=== PATIENT | male | born 1975 | race Caucasian/White ===

== ENCOUNTER 2016-12-18 14:08 | Emergency (ER) | payer BC ==
[2016-12-18 14:23] VITALS: BP 140/93
--- NOTE | 2016-12-18 14:55 | UC ---
Cardiac HPI - HPI Summary HPI Summary: PT PRESENTS WITH 1 AND A HALF WEEKS OF INTERMITTENT MID STERNAL CHEST PAIN. FEELS "TIGHT" WITH OCCASIONAL "PRESSURE". DENIES SOB, NAUSEA, SWEATS. PAIN SOMETIME FEELS LIKE IT IS IN HIS BACK. NOT WORSE WITH EXERTION ALTHOUGH HE FEELS IT AFTER HE WORKS OUT OR DOES STRENUOUS ACTIVITY LIKE SNOW SHOVELING. STARTED A WORKOUT ROUTINE ABOUT 3 WEEKS AGO. 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 HAS NOT TAKEN ANY ANALGESICS. - History of Current Complaint Chief Complaint: UCChestPain Stated Complaint: CHEST PAIN/PRESSURE Time Seen by Provider: 12/18/16 14:41 Hx Obtained From: Patient Pain Intensity: 2 - Allergy/Home Medications Allergies/Adverse Reactions: Allergies Allergy/AdvReac Type Severity Reaction Status Date / Time ANESTHESIA Allergy Severe Vomiting Uncoded 12/18/16 14:23 Home Medications: Home Medications Albuterol HFA INHALER* [Ventolin HFA Inhaler*] PRN 12/18/16 [History] PMH/Surg Hx/FS Hx/Imm Hx - Additional Past Medical History Additional PMH: SEASONAL ALLERGIES Respiratory History Of: Reports: Asthma - Surgical History Surgical History: Yes Surgery Procedure, Year, and Place: TONISILLECTOMY, TYMPANOPLASTY, WISDOM TEETH - Family History Known Family History: Positive: Cardiac Disease, Other - ASTHMA - Social History Alcohol Use: Rare Substance Use Type: Marijuana Smoking Status (MU): Never Smoked Tobacco Review of Systems Constitutional: Negative Respiratory: Negative Cardiovascular: Chest Pain Genitourinary: Negative All Other Systems Reviewed And Are Negative: Yes Physical Exam Triage Information Reviewed: Yes Appearance: Well-Appearing, No Pain Distress, Well-Nourished Vital Signs: Initial Vital Signs Temp 99.1 F 12/18/16 14:16 Pulse 80 12/18/16 14:16 Resp 16 12/18/16 14:16 BP 140/93 12/18/16 14:16 Pulse Ox 99 12/18/16 14:16 Vital Signs Reviewed: Yes Eyes: Positive: Conjunctiva Clear ENT: Positive: Hearing grossly normal, Pharynx normal, TMs normal Neck: Positive: Supple, Nontender, No Lymphadenopathy Respiratory Exam: Normal Cardiovascular Exam: Normal Abdomen Description: Positive: Soft Musculoskeletal: Positive: No Edema Neurological: Positive: Alert Psychological: Positive: Age Appropriate Behavior Skin: Negative: rashes Diagnostics - EKG Cardiac Rate: NL - 76 BPM Cardiac Rhythm: Sinus: Normal Ectopy: None ST Segment: Normal - Differential Diagnoses - Chest Pain Differential Diagnosis/HQI/PQRI: Acute OR, ACS, Chest Wall, Lower Respiratory Infection, Pulmonary Embolism - Clinical Impression Provider Diagnoses: CHEST WALL PAIN Discharge - Discharge Plan Condition: Stable Disposition: HOME Patient Education Materials: Chest Wall Pain (ED) Referrals: Charmaine Roche MD [Primary Care Provider] - If Needed Additional Instructions: YOUR SYMPTOMS ARE NOT CLEARLY SUGGESTIVE OF ANY SPECIFIC RESPIRATORY OR CARDIAC CAUSE. MAY BE DUE TO RECENT INITIATION OF WORKOUT ROUTINE AND HEAVY SNOW SHOVELING. TAKE OTC NSAIDS AND REST. IF SYMPTOMS ARE PERSISTENT OR WORSEN GO TO THE ER WITHOUT FAIL FOR FURTHER EVALUATION.
== END 2016-12-18 15:20 | disposition home or self-care (01) ==
LOC: UCEAST 14:08
DX: R07.89 Other chest pain (principal); J45.909 Unspecified asthma, uncomplicated; R03.0 Elevated blood-pressure reading, without diagnosis of hypertension; Z88.4 Allergy status to anesthetic agent; F12.90 Cannabis use, unspecified, uncomplicated
CPT/HCPCS: 93005; 99211; G0463

== ENCOUNTER 2017-06-20 17:35 | Emergency (ER) | payer BC ==
[2017-06-20] MEDS ORDERED: NS 0.9% 1000 ML* 1,000 ML IV ONE (19:21)
[2017-06-20] MEDS ORDERED: Morphine INJ* 4 MG/ML 1 ML CARPUJECT IV ONE (19:21)
[2017-06-20] MEDS ORDERED: Tetan/Diph/Pertus SYR(Tdap)* 0.5 ML SYR(BOOSTRIX) use SYR IM ONE (19:55)
--- NOTE | 2017-06-20 19:57 | RAD ---
INDICATION: Left shoulder pain COMPARISON: None TECHNIQUE: Routine frontal, Y and axial views were obtained. FINDINGS: There are no acute bony findings. There is cephalad displacement of distal clavicle at the AC joint consistent with AC joint separation. The glenohumeral joint is intact. There is soft tissue swelling with a laceration adjacent to the AC joint. IMPRESSION: SUSPECTED AC JOINT SEPARATION.
[2017-06-20 20:10] LABS: Hematocrit 48 % (42-52); Hemoglobin 16.5 g/dl (14.0-18.0); Mean Corpuscular HGB Conc 35 g/dl (31-36); Mean Corpuscular Hemoglobin 31 pg (27-31); Mean Corpuscular Volume 88 fL (80-94); Mean Platelet Volume 8 um3 (7.4-10.4); Red Blood Count 5.41 10^6/ul (4.0-5.4); Red Cell Distribution Width 13 % (10.5-15); White Blood Count 19.2 10^3/ul (3.5-10.8)
[2017-06-20] MEDS ORDERED: Ibuprofen TAB* 400 MG PO ONE (20:11)
--- NOTE | 2017-06-20 20:11 | RAD ---
INDICATION: Chest pain COMPARISON: None TECHNIQUE: An AP portable view obtained at 1935 hours is submitted. FINDINGS: Bones/Soft Tissues: There are no acute bony findings. Cardiomediastinal: The cardiomediastinal silhouette is normal. Lungs: There are no infiltrates. Pleura: There are no pleural effusions. Other: None IMPRESSION: NO ACTIVE DISEASE.
[2017-06-20 20:25] LABS: ALT 25 U/L (7-52); AST 24 U/L (13-39); Albumin 4.6 g/dL (3.2-5.2); Alkaline Phosphatase 49 U/L (34-104); Anion Gap 7 mmol/L (2-11); BUN/Creatinine Ratio 14.3 (8-20); Blood Urea Nitrogen 12 mg/dL (6-24); CO2 Carbon Dioxide 27 mmol/L (22-32); Calcium 9.3 mg/dL (8.6-10.3); Chloride 102 mmol/L (101-111); EGFR African American 129.5 (>60); EGFR Non-African American 100.7 (>60); Globulin 2.8 g/dL (2-4); Glucose 92 mg/dL (70-100); Lipase < 10 U/L (11.0-82.0); Potassium 3.5 mmol/L (3.5-5.0); Sodium 136 mmol/L (133-145); Total Protein 7.4 g/dL (6.4-8.9)
[2017-06-20] MEDS ORDERED: Iohexol 300* (CONTRAST) 10 ML SDV IV ONE (20:32)
[2017-06-20 20:37] LABS: Alcohol < 10 mg/dL (<10)
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
[2017-06-20 22:19] VITALS: BP 145/89
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
== END 2017-06-20 22:21 | disposition home or self-care (01) ==
LOC: ED 17:35
DX: S43.152A Posterior dislocation of left acromioclavicular joint, initial encounter (principal); S40.212A Abrasion of left shoulder, initial encounter; V19.9XXA Pedal cyclist (driver) (passenger) injured in unspecified traffic accident, initial encounter; Y93.55 Activity, bike riding; Y92.9 Unspecified place or not applicable; J45.909 Unspecified asthma, uncomplicated
CPT/HCPCS: 36415; 71010; 71260; 74177; 80053; 80320; 83605; 83690; 84484; 85025; 85610; 86850; 86900; 86901; 90471; 90715; 93005; 96360; 96374; 96375; 99284; A9270-GY; G0480; J2270; Q9967